=== PATIENT | female | born 1990 | race African-American/Black ===

== ENCOUNTER 2017-03-10 17:51 | Emergency (ER) | payer BC ==
[2017-03-10 17:56] VITALS: BP 112/79; BMI 25.3
--- NOTE | 2017-03-10 18:39 | DR.GENAD ---
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 She denies sex in the past 2 weeks and had some vaginal spotting on this past Tuesday following a family members burial.Spotting abated until this afternoon.She reports pinkish color on tissue upon wiping but denies active bleeding.She c/o whitw milky vaginal discharge w/ o odor and urinary urgency. She denies fever. - Complaint/Symptoms Chief Complaint Doctors Comments: "Vaginal spotting" Chief Complaint:: PT C/O SPOTTING AND CRAMPING. PT STATES SHE IS 9 WEEKS AND 4/ 7 G-3, P-2, A-0, PT STATES SHE STARTED SPOTTING TUESDAY. PT STATES IT HAD STOPPED FOR A FEW DAYS, BUT IT STARTED BACK YESTERDAY. PT STATES THE BLOOD HAS BEEN DRIPPING TODAY WITH AWFUL CRAMPS. - Nurses notes reviewed Nurses Notes Review: Yes - Source History Provided: Patient - Mode of Arrival Mode of Arrival: Ambulatory - Timing Onset of Chief Complaint: 03/05/17 Came on: Suddenly - Duration Duration: Intermittent How lon Duration: Days - Severity Severity: Mild - Modifying Factors Worsens:: working Improves:: rest - Associated Signs and Symptoms Associated Signs and Symptoms: as above PMH - PMH Past Medical History: No Past Surgical History: Yes Surgical History: Past Surgical History Comment: CRYOTHERAPY - Family History History of Family Medical Conditions: No - Social History Does patient currently use any type of tobacco product: No Have you used tobacco products in the last 12 months: No Type of Tobacco Use: None Does any household member use tobacco: No Alcohol Use: None Do you use any recreational Drugs:: No Lives With: Mom Lives Where: Home - infectious screening In the last 2 months have you had wt loss of >10#?: NO Have you had fever, night sweats or hemotysis?: No Have you traveled outside the country in the last 6 months?: No Isolation: Standard ROS - Review of Systems Constitutional: No Symptoms Reported Respiratoy: No Symptoms Reported Cardiovascular: No Symptoms Reported Genitourinary: Discharge, Pain, Bleeding Neurological: No Symptoms Reported Musculoskeletal: No Symptoms Reported Integumentary: No Symptoms Reported Hematologic/Lymphatic: No Symptoms Reported Endocrine: No Symptoms Reported Psychiatric: No Symptoms Reported All Other Systems: Reviewed and Negative PE - Vital Signs Vitals: Temperature 98.8 F Pulse Rate 85 Respiratory Rate 20 Blood Pressure 112/79 O2 Sat by Pulse Oximetry 98 - General Limitations: No Limitations General Appearance: Alert, In No Apparent Distress - Head Head Exam: Normal Inspection - Neck Neck Exam: Normal Inspection, Full ROM, Trachea Midline - Chest Chest Inspection: Normal Inspection, Symmetric Chest Wall Rise - Respiratory Respiratory Exam: Normal Lung Sounds Bilat Respiratory Exam: Bilateral Clear to Auscultation - Cardiovascular Cardiovascular Exam: Regular Rate, Normal Rhythm, Normal Heart Sounds - Abdominal Exam Abdominal Exam: Normal Inspection - Extremities Extremities Exam: Normal Inspection, Full ROM - Back Back Exam: Normal Inspection, Full ROM - Neurologic Neurological Exam: Alert, Oriented X3, CN II-XII Intact - Psychiatric Psychiatric Exam: Normal Affect, Normal Mood - Skin Skin Exam: Warm, Dry, Intact, Normal Color MDM - Differential Diagnosis Differential Diagnosis: threatened , vaginitis, UTI, ectopic . ROR - Labs Reviewed Laboratory Results Reviewed?: Yes Result Diagrams: 03/10/17 18:55 03/10/17 18:55 Laboratory: WBC 5.2 X10^3/uL (3.6-10.0) 03/10/17 18:55 RBC 3.88 X10^6/uL (3.5-5.4) 03/10/17 18:55 Hgb 11.7 g/dL (12.0-16.0) L 03/10/17 18:55 Hct 34.5 % (36.0-47.0) L 03/10/17 18:55 MCV 88.9 fL (80.0-100.0) 03/10/17 18:55 MCH 30.1 pg (27.0-34.0) 03/10/17 18:55 MCHC 33.9 g/dL (33.0-35.0) 03/10/17 18:55 RDW 13.7 % (11.6-16.5) 03/10/17 18:55 Plt Count 186 X10^3/uL (150.0-450.0) 03/10/17 18:55 MPV 9.2 fL (7.4-11.0) 03/10/17 18:55 Neut % 41.8 % (42.0-75.0) L 03/10/17 18:55 Lymph % 44.5 % (21.0-51.0) 03/10/17 18:55 [place] % 10.9 % (0.0-13.0) 03/10/17 18:55 Eos % 2.4 % (0.9-2.9) 03/10/17 18:55 Baso % 0.4 % (0.2-1.0) 03/10/17 18:55 Neut # 2.2 x10^3/uL (2.2-4.8) 03/10/17 18:55 Lymph # 2.3 X10^3/uL (1.3-2.9) 03/10/17 18:55 [place] # 0.6 x10^3/uL (0.3-0.8) 03/10/17 18:55 Eos # 0.1 x10^3/uL (0.0-0.2) 03/10/17 18:55 Baso # 0.0 X10^3/uL (0.0-0.1) 03/10/17 18:55 Absolute Nucleated RBC 0.0 /100WBC 03/10/17 18:55 Sodium 139 mmol/L (136-145) 03/10/17 18:55 Corrected Sodium TNP 03/10/17 18:55 Potassium 3.3 mmol/L (3.5-5.1) L 03/10/17 18:55 Chloride 104 mmol/L (98-107) 03/10/17 18:55 Carbon Dioxide 28.9 mmol/L (21-32) 03/10/17 18:55 BUN 6 mg/dL (7-18) L 03/10/17 18:55 Creatinine 0.65 mg/dL (0.55-1.02) 03/10/17 18:55 Est GFR (MDRD) Af Amer > 60 (>60) 03/10/17 18:55 Est GFR (MDRD) Non-Af > 60 (>60) 03/10/17 18:55 Glucose 98 mg/dL (65-99) 03/10/17 18:55 Calcium 8.5 mg/dL (8.5-10.1) 08/10/17 18:55 Corrected Calcium TNP 03/10/17 18:55 Total Bilirubin 0.20 mg/dL (0.2-1.0) 03/10/17 18:55 AST 20 Units/L (15-37) 03/10/17 18:55 ALT 28 Units/L (12-78) 03/10/17 18:55 Alkaline Phosphatase 39 Units/L (46-116) L 03/10/17 18:55 Total Protein 7.7 g/dL (6.4-8.2) 03/10/17 18:55 Albumin 3.7 g/dL (3.4-5.0) 03/10/17 18:55 Globulin 4.0 g/dL (2.5-4.5) 03/10/17 18:55 Albumin/Globulin Ratio 0.9 Ratio (1.1-2.1) L 03/10/17 18:55 HCG, Quant 32987 mIU/mL (0-6) H 03/10/17 18:55 Specimen Type Clean catch urine 03/10/17 18:45 Urine Color Yellow (YELLOW) 03/10/17 18:45 Urine Appearance Clear (CLEAR) 03/10/17 18:45 Urine pH 6.0 (5.0 - 8.0) 03/10/17 18:45 Ur Specific [place] 1.015 (1.000-1.030) 03/10/17 18:45 Urine Protein Negative (NEGATIVE) 03/10/17 18:45 Urine Glucose (UA) Negative (NEGATIVE) 03/10/17 18:45 Urine Ketones Negative (NEGATIVE) 03/10/17 18:45 Urine Occult Blood 1+ (NEGATIVE) 03/10/17 18:45 Urine Nitrite Negative (NEGATIVE) 03/10/17 18:45 Urine Bilirubin Negative (NEGATIVE) 03/10/17 18:45 Urine Urobilinogen Normal (NORMAL) 03/10/17 18:45 Ur Leukocyte Esterase Negative (NEGATIVE) 03/10/17 18:45 Urine RBC 0-3 /HPF (NEGATIVE) 03/10/17 18:45 Urine WBC 0-3 /HPF (NEGATIVE) 03/10/17 18:45 Ur Squamous Epith Cells Rare /HPF (NEGATIVE) 03/10/17 18:45 Urine Bacteria Negative /HPF (NEGATIVE) 03/10/17 18:45 Ur Culture Indicated? No/not indicated 03/10/17 18:45 - Diagnosis Discharge Problem: Threatened in first trimester - Discharge Plan Disposition: 07 AGAINST MEDICAL ADVICE Condition: Stable - Follow ups/Referrals Follow ups/Referrals: Isabel LINARESc [Primary Care Provider] - 3 days - Instructions Instructions: Vaginal Bleeding During , First Trimester, Threatened Miscarriage, [id number], Pelvic Rest
[2017-03-10 19:02] LABS: BILIRUBIN,URINE NEGATIVE (NEGATIVE); BLOOD/HEMOGLOBIN,URINE 1+ (NEGATIVE); GLUCOSE, URINE NEGATIVE (NEGATIVE); KETONES,URINE NEGATIVE (NEGATIVE); LEUKOCYTE ESTERASE ,URINE NEGATIVE (NEGATIVE); NITRITES,URINE NEGATIVE (NEGATIVE); PROTEIN,URINE NEGATIVE (NEGATIVE); UROBILINOGEN,URINE NORMAL (NORMAL)
[2017-03-10 19:05] LABS: BASOPHILS % (AUTO) 0.4 % (0.2-1.0); EOSINOPHILS # (AUTO) 0.1 x10^3/uL (0.0-0.2); EOSINOPHILS % (AUTO) 2.4 % (0.9-2.9); HEMATOCRIT 34.5 % (36.0-47.0); HEMOGLOBIN 11.7 g/dL (12.0-16.0); LYMPHOCYTES # (AUTO) 2.3 X10^3/uL (1.3-2.9); LYMPHOCYTES % (AUTO) 44.5 % (21.0-51.0); MEAN CORPUSCULAR HEMOGLOBIN 30.1 pg (27.0-34.0); MEAN CORPUSCULAR HGB CONC 33.9 g/dL (33.0-35.0); MEAN CORPUSCULAR VOLUME 88.9 fL (80.0-100.0); MEAN PLATELET VOLUME 9.2 fL (7.4-11.0); MONOCYTES # (AUTO) 0.6 x10^3/uL (0.3-0.8); MONOCYTES % (AUTO) 10.9 % (0.0-13.0); NEUTROPHILS # (AUTO) 2.2 x10^3/uL (2.2-4.8); NEUTROPHILS % (AUTO) 41.8 % (42.0-75.0); PLATELET COUNT 186 X10^3/uL (150.0-450.0); RED BLOOD COUNT 3.88 X10^6/uL (3.5-5.4); RED CELL DISTRIBUTION WIDTH 13.7 % (11.6-16.5); WHITE BLOOD COUNT 5.2 X10^3/uL (3.6-10.0)
[2017-03-10 19:17] LABS: ALANINE AMINOTRANSFERASE 28 Units/L (12-78); ALBUMIN 3.7 g/dL (3.4-5.0); ALKALINE PHOSPHATASE 39 Units/L (46-116); ASPARTATE AMINO TRANSFERASE 20 Units/L (15-37); BLOOD UREA NITROGEN 6 mg/dL (7-18); CALCIUM 8.5 mg/dL (8.5-10.1); CARBON DIOXIDE 28.9 mmol/L (21-32); CHLORIDE 104 mmol/L (98-107); CREATININE 0.65 mg/dL (0.55-1.02); GLUCOSE 98 mg/dL (65-99); SODIUM 139 mmol/L (136-145); TOTAL PROTEIN 7.7 g/dL (6.4-8.2); eGFR BLACK RACES > 60 (>60); eGFR NON BLACK RACES > 60 (>60)
[2017-03-10 19:21] LABS: APPEARANCE,URINE CLEAR (CLEAR); BACTERIA,URINE NEGATIVE /HPF (NEGATIVE); COLOR,URINE YELLOW (YELLOW); RBC,URINE 0-3 /HPF (NEGATIVE); SQUAMOUS EPITHELIAL CELL,UR RARE /HPF (NEGATIVE)
[2017-03-10 20:09] LABS: HCG,QUANTITATIVE 16482 mIU/mL (0-6)
--- NOTE | 2017-03-10 20:58 | US ---
History: Spotting and cramping, 9 week by LMP, quantitative HCG of 16,482 Exam: Pelvic ultrasound Comparison: None Technique: Multiple grayscale and color flow Doppler images of the pelvis were obtained. Findings: There is a small anechoic rounded collection seen within the uterus measuring 4.3 mm that could repr esent an early gestational sac of approximately 4 weeks 1 day. No yolk sac or pole identified. The right ovary measures 2.5 x 2.5 cm. The left ovary measures 3.5 x 3 cm. No adnexal masses or free fluid identified IMPRESSION: 1. Small anechoic fluid collection seen within the uterus. No yolk sac or pole identified. Fi ndings could represent nonspecific fluid versus a very early gestational sac of approximately 4 week s 1 day, however size is not concordant with the provided dates by LMP. Continued clinical and sonog raphic followup is recommended. Reported By:
== END 2017-03-10 21:04 | disposition left against medical advice (07) ==
LOC: ER 18:03
DX: O20.0 Threatened abortion (principal); Z3A.09 9 weeks gestation of pregnancy
CPT/HCPCS: 36415; 76801; 80053; 81001; 84702; 85025; 99283; 99284